=== PATIENT | male | born 1975 | race Native Hawaiian/Other Pacific Islander ===

== ENCOUNTER 2017-11-09 21:00 | Emergency (ER) | payer OTHER ==
[~2017-11-09] VITALS: Ht 193 cm; Wt 163.3 kg
[2017-11-09 21:23] VITALS: BP 136/84
== END 2017-11-10 00:45 | disposition left against medical advice (07) ==
LOC: ER 21:00
DX: J02.9 Acute pharyngitis, unspecified (principal); Z53.21 Procedure and treatment not carried out due to patient leaving prior to being seen by health care provider